=== PATIENT | female | born 1975 | race Caucasian/White ===

== ENCOUNTER → 2016-06-15 | Outpatient (REF) | payer BC | LOC: M SFHCLERA 10:08 | PROVIDERS: ATTEND Family Medicine | DX: R35.0 Frequency of micturition (principal) ==

== ENCOUNTER → 2017-01-31 | Outpatient (REF) | payer BC | LOC: M SFHCLERA 13:04 | PROVIDERS: ATTEND Nurse Practitioner Family | DX: R19.7 Diarrhea, unspecified (principal) ==

== ENCOUNTER → 2017-02-08 | Outpatient (REF) | payer BC ==
[2017-02-08 12:00] LABS: BF MONONUCLEAR CELL % 36.2 % (0-0); BF POLYMORPHONUCLEAR CELL % 63.8 CELLS/uL (0-0); RBC BODY FLUID < 2000.000 CELLS/uL (<2000)
[2017-02-08 12:02] LABS: CRYSTALS, BODY FLUID NONE SEEN (NONE SEEN)
== END ==
LOC: M SFHCLERA 10:34
PROVIDERS: ATTEND Family Medicine
DX: M25.462 Effusion, left knee (principal); M25.461 Effusion, right knee

== ENCOUNTER → 2017-02-08 | Outpatient (CLI) | payer BC ==
--- NOTE | 2017-02-08 09:27 | REP ---
Right knee series: Five views. History: Effusion. Pain. Findings: Five views of the right knee demonstrate moderate three compartment osteoarthritis. There is soft tissue fullness in the suprapatellar bursa region consistent with a joint effusion. No erosive changes seen. Patellofemoral narrowing and medial compartment spurring are more pronounced than the lateral osteoarthritic changes. A normal fabella is seen. Impression: Three compartment moderate osteoarthritis of the right knee with evidence of joint effusion. Signed by Joseph Gottlieb MD 02/08/2017 09:30 A
--- NOTE | 2017-02-08 09:29 | REP ---
Standing AP view of the knees: Single view. History: Bilateral knee pain and effusion. No comparison knee radiographs. Findings: There is mild bilateral medial compartment joint space narrowing. There is medial compartment spur formation bilaterally as well, moderate on the right and mild on the left. There is a enchondroma in the distal femur on the left. Impression: 1. Osteoarthritis in the medial compartment of both knees, right greater than left. Mild joint space narrowing. 2. Benign enchondroma left distal femur. Signed by Joseph Gottlieb MD 02/08/2017 09:31 A
== END ==
LOC: M LRY 07:59
PROVIDERS: ATTEND Family Medicine
DX: M25.561 Pain in right knee (principal); M25.562 Pain in left knee; G89.29 Other chronic pain; M17.0 Bilateral primary osteoarthritis of knee

== ENCOUNTER → 2024-02-08 | Outpatient (CLI) | payer BC | LOC: M RAD 16:51 | PROVIDERS: ATTEND Internal Medicine | DX: M25.50 Pain in unspecified joint (principal) ==

== ENCOUNTER → 2024-02-08 | Outpatient (REF) | payer BC ==
[2024-02-08 13:13] LABS: APPEARANCE, URINE MANUAL CLEAR (CLEAR); BILIRUBIN, URINE MANUAL NEGATIVE (NEGATIVE); BLOOD URINE MANUAL NEGATIVE (NEGATIVE); COLOR, URINE MANUAL YELLOW (YELLOW); GLUCOSE, URINE (UA) MANUAL NEGATIVE (NEGATIVE); KETONE, URINE MANUAL NEGATIVE (NEGATIVE); LEUKOCYTE ESTERASE, URINE MAN NEGATIVE (NEGATIVE); NITRITE, URINE MANUAL NEGATIVE (NEGATIVE); PROTEIN, URINE MANUAL NEGATIVE (NEGATIVE); SPECIFIC GRAVITY,URINE MANUAL 1.015 (1.002-1.035); UROBILINOGEN, URINE MANUAL NORMAL (NORMAL)
[2024-02-08 13:52] LABS: C REACTIVE PROTEIN QUANTITATIV 0.7 MG/DL (<1.0)
[2024-02-08 13:54] LABS: CREATININE,RANDOM URINE 107.8 MG/DL
[2024-02-08 13:56] LABS: COMPLEMENT C3 129.5 MG/DL (90.0-170.0); COMPLEMENT C4 35.6 MG/DL (12-36)
[2024-02-08 13:58] LABS: TOTAL PROTEIN,RANDOM URINE < 6.0 MG/DL (0.0-14.0)
[2024-02-10 23:57] LABS: PTT-LA 29 sec (<=40); dRVVT 36 sec (<=45)
== END ==
LOC: M SFHCRHEU 07:44
PROVIDERS: ATTEND Internal Medicine
DX: R76.8 Other specified abnormal immunological findings in serum (principal); M25.50 Pain in unspecified joint

== ENCOUNTER → 2024-09-01 | Outpatient (CLI) | payer BC | LOC: M RAD 07-11 14:25 | PROVIDERS: ATTEND Internal Medicine | DX: M79.641 Pain in right hand (principal); M79.642 Pain in left hand; M25.552 Pain in left hip ==

== ENCOUNTER → 2025-04-11 | Outpatient (CLI) | payer BC | LOC: M PLARAD 07:51 | PROVIDERS: ATTEND Chiropractor | DX: M51.06 Intervertebral disc disorders with myelopathy, lumbar region (principal); M48.061 Spinal stenosis, lumbar region without neurogenic claudication ==